=== PATIENT | female | born 2000 | race Caucasian/White ===

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

== ENCOUNTER 2019-01-23 19:55 | Outpatient (CLI) | payer MEDICAID | END 2019-01-23 19:56 | LOC: LAB.R 19:55 | PROVIDERS: ATTEND Registered Nurse | DX: J02.9 Acute pharyngitis, unspecified (principal) | CPT/HCPCS: 87070; 87430 ==

== ENCOUNTER 2019-03-12 08:41 | Emergency (ER) | payer MEDICAID ==
[2019-03-12 08:51] VITALS: BP 139/77
[2019-03-12] MEDS ORDERED: IBUPROFEN 800 MG TABLET PO STA (09:01)
--- NOTE | 2019-03-12 09:04 | ED Physician Documentation ---
PD HPI LOWER EXT INJURY - Stated complaint Stated Complaint: ANKLE PX - Chief complaint Chief Complaint: Ext Problem - History obtained from History obtained from: Patient - History of Present Illness PD HPI LOW EXT INJURY LOCATION: Left, Ankle Type of injury: Twist Where injury occurred: Other (horse stable) Timing - onset: Yesterday Worsened by: Moving, Palpating, Other (weight bearing) Associated symptoms: Swelling. No: Weakness, Numbness Similar symptoms before: Has not had sx before - Additional information Additional information: The patient is a 18-year-old female who fell off her horse yesterday, twisting her left ankle. She presents now because of left ankle pain, exacerbated with weightbearing. She denies any other injuries. Review of Systems Constitutional: denies: Fever Nose: denies: Congestion Respiratory: denies: Dyspnea GI: denies: Abdominal Pain Skin: denies: Abrasion (s) Musculoskeletal: reports: Joint pain (left ankle). denies: Back pain Neurologic: denies: Focal weakness, Numbness, Headache, Head injury PD PAST MEDICAL HISTORY - Past Medical History Past Medical History: Yes Endocrine/Autoimmune: None Other Past Medical History: autoimmune disease - Past Surgical History Past Surgical History: No - Present Medications Home Medications: Ambulatory Orders Medication Instructions Recorded Confirmed Venlafaxine [Effexor] 37.5 mg DAILY 03/12/19 03/12/19 - Allergies Allergies/Adverse Reactions: Allergies Allergy/AdvReac Type Severity Reaction Status Date / Time Penicillins Allergy Rash Verified 03/12/19 08:51 - Social History Does the pt smoke?: No Smoking Status: Never smoker Does the pt drink ETOH?: No Does the pt have substance abuse?: No - Immunizations Immunizations are current?: Yes - POLST Patient has POLST: No PD ED PE NORMAL - Vitals Vital signs reviewed: Yes (Borderline systolic hypertension initially.) - General General: Alert and oriented X 3, Well developed/nourished - HEENT HEENT: Atraumatic - Respiratory Respiratory: No respiratory distress - Derm Derm: No rash - Extremities Extremities: Other (There is soft tissue swelling at the lateral aspect of the left ankle, with tenderness to palpation over the posterior aspect of the lateral malleolus. There is no tenderness to palpation over the medial malleolus, the fifth metatarsal base, or the proximal fibula. Distal neurovascular is intact.) - Neuro Neuro: Alert and oriented X 3, No motor deficit, No sensory deficit Results - Vitals Vitals: Vital Signs - 24 hr 03/12/19 08:44 Temperature 36.6 C Heart Rate 90 Respiratory 18 Rate Blood Pressure 139/77 H O2 Saturation 98 Oxygen O2 Source Room air - Rads (name of study) left ankle Radiology: Prelim report reviewed, EMP read contemporaneously, See rad report (Soft tissue swelling without fracture detected.) PD MEDICAL DECISION MAKING - ED course Complexity details: reviewed results, re-evaluated patient, considered differential, d/w patient ED course: The patient's presentation is most consistent with acute ankle sprain. There is no evidence of fracture or dislocation seen on x-ray examination. Treatment in the emergency department included administration of ankle air splint. Crutches were dispensed. Ibuprofen, 800 mg, was administered orally. I discussed with her the expected course of injury, symptomatic treatment and outpatient follow- up, as well as potentially worrisome signs or symptoms that should prompt reevaluation in the emergency department. Departure - Departure Disposition: 01 Home, Self Care Clinical Impression: Left ankle sprain Qualifiers: Encounter type: initial encounter Involved ligament of ankle: posterior talofibular ligament Qualified Code(s): S93.492A - Sprain of other ligament of left ankle, initial encounter Condition: Stable Instructions: ED Sprain Ankle W X Ray Comments: Keep your injured leg elevated as much of the time as possible. Apply ice pack to the injured area intermittently for the next 3 days. You can use ibuprofen, up to 800 mg 3 times daily for its anti-inflammatory effect. Let pain be your guide to activity level. Follow up with your primary physician within 2 weeks if not starting to improve. Call to schedule a follow-up appointment. Return to the emergency department if you develop markedly increasing pain, or otherwise worsening symptoms. Forms: Activity restrictions
--- NOTE | 2019-03-12 09:32 | XRAY Report ---
Reason: left ankle injury Procedure Date: 03/12/2019 Accession Number: [id number] / [id number] Procedure: XR - Ankle 3 View LT CPT Code: FULL RESULT: EXAM: LEFT ANKLE RADIOGRAPHY EXAM DATE: 03/12/2019 09:17 AM. CLINICAL HISTORY: Left ankle injury. COMPARISON: None. TECHNIQUE: 3 views. FINDINGS: Bones: Normal. No fractures or bone lesions. Joints: Normal. No effusion. No subluxations. The ankle mortise is normally aligned. Soft Tissues: Mild soft tissue swelling. IMPRESSION: Soft tissue swelling without fracture detected. [facility]
== END 2019-03-12 09:54 | disposition home or self-care (01) ==
LOC: ED 08:41
DX: S93.492A Sprain of other ligament of left ankle, initial encounter (principal); V80.010A Animal-rider injured by fall from or being thrown from horse in noncollision accident, initial encounter; X50.1XXA Overexertion from prolonged static or awkward postures, initial encounter; Y92.89 Other specified places as the place of occurrence of the external cause
CPT/HCPCS: 73610; 99283; A9270

== ENCOUNTER 2019-03-30 20:04 | Emergency (ER) | payer MEDICAID ==
[2019-03-30 20:12] VITALS: BP 132/76
[2019-03-30] MEDS ORDERED: SUMAtriptan 6 MG/0.5 ML VIAL SUBQ STA (20:20)
--- NOTE | 2019-03-30 20:23 | ED Physician Documentation ---
PD HPI HEADACHE - Stated complaint Stated Complaint: MIGRAINE KILPATRICK - Chief complaint Chief Complaint: Heent - History obtained from History obtained from: Patient - History of Present Illness Timing - onset: Today (18-year-old with recurrent migraines since the age of 14. Gradual onset retro-orbital headache today associated with 2 episodes of vomiting and light sensitivity but no neck stiffness or fevers similar to prior migraines. She tried Excedrin without relief.) Review of Systems Constitutional: reports: Reviewed and negative Throat: reports: Reviewed and negative Cardiac: reports: Reviewed and negative Respiratory: reports: Dyspnea PD PAST MEDICAL HISTORY - Past Medical History Endocrine/Autoimmune: None - Past Surgical History Past Surgical History: No - Present Medications Home Medications: Ambulatory Orders Medication Instructions Recorded Confirmed Venlafaxine [Effexor] 37.5 mg DAILY 03/12/19 03/12/19 Ondansetron Odt [Zofran] 4 mg TL Q6H PRN #10 tablet 03/30/19 SUMAtriptan [Imitrex] 25 mg PO BID PRN #10 tablet 03/30/19 - Allergies Allergies/Adverse Reactions: Allergies Allergy/AdvReac Type Severity Reaction Status Date / Time Penicillins Allergy Rash Verified 03/30/19 20:11 - Social History Does the pt smoke?: No Smoking Status: Never smoker Does the pt drink ETOH?: No Does the pt have substance abuse?: No - Immunizations Immunizations are current?: Yes - POLST Patient has POLST: No PD ED PE NORMAL - Vitals Vital signs reviewed: Yes - General General: Alert and oriented X 3, No acute distress - HEENT HEENT: PERRL, EOMI - Neck Neck: Supple, no meningeal sign, No bony TTP - Neuro Neuro: Alert and oriented X 3, associate 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 As such I doubt subarachnoid hemorrhage. There are no infectious symptoms such as fever or stiff neck to make me suspect meningitis. No carbon monoxide exposure by history. She is feeling much better after Imitrex but still having persistent nausea and was given Zofran. Requested discharge with a work note. Departure - Departure Disposition: 01 Home, Self Care Clinical Impression: Migraine Qualifiers: Migraine type: without aura Status migrainosus presence: with status migrainosus Intractability: not intractable Qualified Code(s): G43.001 - Migraine without aura, not intractable, with status migrainosus Condition: Good Record reviewed to determine appropriate education?: Yes Instructions: ED Headache Migraine Prescriptions: Ondansetron Odt [Zofran] 4 mg TL Q6H PRN #10 tablet PRN Reason: Nausea / Vomiting SUMAtriptan [Imitrex] 25 mg PO BID PRN #10 tablet PRN Reason: Headache Comments: Call your doctor to arrange a follow-up appointment, make the next available appointment. In the interim, return anytime if worse or if new symptoms develop. Your blood pressure was elevated today on check into the emergency department. This does not mean that you have hypertension, it is a common phenomenon to come to the emergency department and have elevated blood pressure. I recommend that you see your primary care physician within the week to have it rechecked when you are feeling better.
[2019-03-30] MEDS ORDERED: ONDANSETRON ODT 4 MG TABLET TL STA (21:11)
== END 2019-03-30 21:24 | disposition home or self-care (01) ==
LOC: ED 20:04
DX: G43.001 Migraine without aura, not intractable, with status migrainosus (principal); R03.0 Elevated blood-pressure reading, without diagnosis of hypertension
CPT/HCPCS: 96372; 99283; Q0162

== ENCOUNTER 2019-05-22 12:14 | Outpatient (CLI) | payer MEDICAID ==
[2019-05-22 13:10] LABS: HB2 TOTAL 13.6 g/dL; HEMOGLOBIN A1C 0.46 g/dL; HEMOGLOBIN A1C % 5.2 % (4.6-6.2)
[2019-05-22 13:20] LABS: ALBUMIN 4.1 g/dL (3.2-5.5); ALBUMIN/GLOBULIN RATIO 1.1 (1.0-2.2); BILIRUBIN,TOTAL 0.6 mg/dL (0.2-1.0); CALCIUM 9.1 mg/dL (8.5-10.3); CREATININE 0.7 mg/dL (0.4-1.0); TOTAL PROTEIN 7.8 g/dL (6.7-8.2)
[2019-05-22 13:44] LABS: THYROID STIMULATING HORMONE 1.97 uIU/mL (0.34-5.60)
[2019-05-22 13:46] LABS: FREE T4 (FREE THYROXINE) 0.83 ng/dL (0.58-1.64)
[2019-05-22 13:50] LABS: PROLACTIN 4.06 ng/mL
== END 2019-05-22 12:15 | disposition home or self-care (01) ==
LOC: LAB 12:14
PROVIDERS: ATTEND Obstetrics & Gynecology
DX: N92.6 Irregular menstruation, unspecified (principal); Z31.69 Encounter for other general counseling and advice on procreation; E28.2 Polycystic ovarian syndrome; N92.0 Excessive and frequent menstruation with regular cycle
CPT/HCPCS: 36415; 80053; 83036; 84146; 84439; 84443; 86762; 86787

== ENCOUNTER 2019-11-07 08:04 | Emergency (ER) | payer MEDICAID ==
[2019-11-07 08:12] VITALS: BP 133/79
--- NOTE | 2019-11-07 08:47 | ED Physician Documentation ---
PD HPI URI - Stated complaint Stated Complaint: COUGH/FEVER - Chief complaint Chief Complaint: Heent - History obtained from History obtained from: Patient, Family - History of Present Illness Timing - onset: How many days ago (3) Timing duration: Days (3) Timing details: Gradual onset, Still present Associated symptoms: Fever, Nasal congestion, Rhinorrhea, Sinus pain, Sore throat, Dry cough, Dyspnea Contributing factors: Sick contact Improves by: Rest, Medication Worsened by: Activity Similar symptoms before: Diagnosis (OM URI) Recently seen: Not recently seen - Additional information Additional information: Previously well 19-year-old female has developed a cough and congestion 3 days ago she has sinus pressure in the frontal sinus area a cough nonproductive and a sore throat. She states sore throat was bad enough this morning early that she was feeling she was having a difficult time getting a full deep breath. She has not used an inhaler previously she has had similar symptoms previously with otitis. Review of Systems Constitutional: reports: Fever Eyes: denies: Decreased vision Ears: denies: Ear pain Nose: reports: Rhinorrhea / runny nose, Congestion, Sinus pressure / pain Throat: reports: Sore throat Cardiac: denies: Chest pain / pressure, Palpitations Respiratory: reports: Dyspnea, Cough. 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 HEENT: None Psych: None Musculoskeletal: None Derm: None - Past Surgical History Past Surgical History: No - Present Medications Home Medications: Ambulatory Orders Medication Instructions Recorded Confirmed Venlafaxine [Effexor] 37.5 mg DAILY 03/12/19 03/12/19 Ondansetron Odt [Zofran] 4 mg TL Q6H PRN #10 tablet 03/30/19 SUMAtriptan [Imitrex] 25 mg PO BID PRN #10 tablet 03/30/19 Oseltamivir [Tamiflu] 75 mg PO BID #10 capsule 11/07/19 - Allergies Allergies/Adverse Reactions: Allergies Allergy/AdvReac Type Severity Reaction Status Date / Time Penicillins Allergy Rash Verified 11/07/19 08:12 - Social History Does the pt smoke?: No Smoking Status: Never smoker Does the pt drink ETOH?: No Does the pt have substance abuse?: No - Immunizations Immunizations are current?: Yes - POLST Patient has POLST: No PD ED PE NORMAL - Vitals Vital signs reviewed: Yes (Febrile tachycardic and hypertensive) - General General: Alert and oriented X 3, No acute distress, Well developed/nourished - HEENT HEENT: Atraumatic, PERRL, EOMI, Ears normal, Moist mucous membranes, Pharynx benign, Dentition benign, Other (Frontal sinus point tenderness to palpation.) - Neck Neck: Supple, no meningeal sign, No bony TTP - Cardiac Cardiac: RRR, No murmur - Respiratory Respiratory: No respiratory distress, Clear bilaterally - Abdomen Abdomen: Normal bowel sounds, Soft, Non tender, Non distended, No organomegaly - Back Back: No CVA TTP, No spinal TTP - Derm Derm: Normal color, Warm and dry, No rash - Extremities Extremities: No deformity, No edema - Neuro Neuro: Alert and oriented X 3, rock cutter 2-12 intact, No motor deficit, No sensory deficit, Normal speech Eye Opening: Spontaneous Motor: Obeys Commands Verbal: Oriented GCS Score: 15 - Psych Psych: Normal mood, Normal affect Results - Vitals Vitals: Vital Signs - 24 hr 11/07/19 08:10 Temperature 37.9 C H Heart Rate 133 H Respiratory 14 Rate Blood Pressure 133/79 H O2 Saturation 97 Oxygen O2 Source Room air - Labs Labs: Laboratory Tests 11/07/19 11/07/19 08:15 08:15 Influenza A (Rapid) Negative Influenza B (Rapid) POSITIVE H Group A Strep Rapid Negative PD MEDICAL DECISION MAKING - ED course Complexity details: reviewed results, re-evaluated patient, considered differential, d/w patient, d/w family ED course: 19 y/o female with influenza B. She is administered decadron and we will place her on a course of tamiflu. Departure - Departure Disposition: 01 Home, Self Care Clinical Impression: Influenza B Condition: Stable Instructions: ED Flu Follow-Up: Shanon Nj ARNP [Physician No Access] - Prescriptions: Oseltamivir [Tamiflu] 75 mg PO BID #10 capsule Forms: Activity restrictions
[2019-11-07] MEDS ORDERED: DEXAMETHASONE 10 MG/ML VIAL PO STA (08:52)
[2019-11-07] MEDS ORDERED: CHERRY SYRUP 10 ML UDC PO ONE (08:52)
== END 2019-11-07 09:02 | disposition home or self-care (01) ==
LOC: ED 08:04
DX: J10.1 Influenza due to other identified influenza virus with other respiratory manifestations (principal)
CPT/HCPCS: 87070; 87275; 87276; 87430; 99283; 99284; A9270

== ENCOUNTER 2020-04-05 21:53 | Emergency (ER) | payer MEDICAID ==
[2020-04-05 22:14] VITALS: BP 132/82
--- NOTE | 2020-04-05 22:57 | ED Physician Documentation ---
History of Present Illness - Stated complaint Stated Complaint: VEINS RED/RAISED ON LEGS - Chief complaint Chief Complaint: Ext Problem - History obtained from History obtained from: Patient (the patient is a 19 y/o f with a cc of rash and raised veins to her bilateral thighs. she denies any other complaints, she reports she was out in the sun today and noticed some redness to her bilaeral thighs and she did some research on the internet and noticed that this could be a sign of covid 19. she also reports that over 2 years ago she was admitted to [facility] off and on for over 2 months for some sort of inflammatory or autoimmune disease and was treated with prednisone for over 2 months and that she has been asymptomatic since that time, she described her symptoms at that time to include diffuse inflammation of her joints, low grade fevers and describes signs consistent with erythema nodosum. she denies any fevers, headaches, sore throat or neck pain or sob or chest pain.) Review of Systems Constitutional: reports: Reviewed and negative Eyes: reports: Reviewed and negative Ears: reports: Reviewed and negative Nose: reports: Reviewed and negative Throat: reports: Reviewed and negative Cardiac: reports: Reviewed and negative Respiratory: reports: Reviewed and negative GI: reports: Reviewed and negative : reports: Reviewed and negative Skin: reports: Rash Musculoskeletal: reports: Reviewed and negative Neurologic: reports: Reviewed and negative Psychiatric: reports: Reviewed and negative Endocrine: reports: Reviewed and negative Immunocompromised: reports: Reviewed and negative PD PAST MEDICAL HISTORY - Past Medical History Cardiovascular: None Respiratory: None Neuro: Headaches, Migraines Endocrine/Autoimmune: None GI: None 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 HEENT: None Psych: None Musculoskeletal: None Derm: None - Past Surgical History Past Surgical History: No - Present Medications Home Medications: Ambulatory Orders Medication Instructions Recorded Confirmed Pnv No.95/Ferrous Fum/Folic AC 1 tab DAILY 04/05/20 04/05/20 [ Cap[place]] - Allergies Allergies/Adverse Reactions: Allergies Allergy/AdvReac Type Severity Reaction Status Date / Time Penicillins Allergy Rash Verified 11/07/19 08:12 - Social History Does the pt smoke?: No Smoking Status: Never smoker Does the pt drink ETOH?: No Does the pt have substance abuse?: No - Immunizations Immunizations are current?: Yes - POLST Patient has POLST: No PD ED PE NORMAL - Vitals Vital signs reviewed: Yes - General General: Alert and oriented X 3, No acute distress, Well developed/nourished - HEENT HEENT: Atraumatic, PERRL - Neck Neck: Supple, no meningeal sign, No adenopathy, No JVD - Cardiac Cardiac: RRR, No murmur, Strong equal pulses - Respiratory Respiratory: No respiratory distress, Clear bilaterally - Abdomen Abdomen: Normal bowel sounds, Soft, Non tender, Non distended, No organomegaly - Back Back: No CVA TTP, No spinal TTP - Derm Derm: Normal color, Warm and dry, Other (on bilateral thighs there are some mild areas of diffuse erythema on the thighs that is without fluctuation or induration, there is no inguinal LAD, not warm, There is no petechiae or purpura.Compartments are soft.) - Extremities Extremities: No deformity - Neuro Neuro: Alert and oriented X 3 - Psych Psych: Normal mood, Normal affect Results - Vitals Vitals: Vital Signs - 24 hr 04/05/20 22:12 Temperature 37.1 C Heart Rate 90 Respiratory 18 Rate Blood Pressure 132/82 H O2 Saturation 98 Oxygen O2 Source Room air PD MEDICAL DECISION MAKING - ED course Complexity details: considered differential (Given the history and physical exam this could be consistent with a contact dermatitis or heat rash also on the differential this could possibly be a manifestation of COVID-19 or more likely would be a manifestation of previous underlying undiagnosed inflammatory disorder or autoimmune disease. the patient reports that she was worked up for sarcoidosis as well as lupus and multiple other causes of her symptoms to include crohns or UC, she reports she had a negative EGD as well as colonoscopy and that her blood work was unremarkable other than elevated inflammatory markers. she denies any other complaints today, specifically denies any fevers, cough, [place], cp/sob, neck pain or lower extremity swelling, denies any hx of pe/dvt.) Departure - Departure Disposition: 01 Home, Self Care Clinical Impression: Rash and nonspecific skin eruption Condition: Stable Instructions: ED Erythema Follow-Up: your, doctor [Other] Oliver Mejia MD [Provider Admit Priv/Credential] - Tomorrow Comments: ice as needed, take benadryl as needed. follow up with a primary care provider tomorrow. return to the emergency department with any concerns. hydrate well.
== END 2020-04-05 23:13 | disposition home or self-care (01) ==
LOC: ED 21:53
DX: R21 Rash and other nonspecific skin eruption (principal)
CPT/HCPCS: 99282; 99284

== ENCOUNTER 2020-04-13 12:02 | Outpatient (CLI) | payer MEDICAID | END 2020-04-13 23:59 | disposition home or self-care (01) | LOC: LAB.WCP 12:02 | PROVIDERS: ATTEND Obstetrics & Gynecology | DX: N97.0 Female infertility associated with anovulation (principal); N92.6 Irregular menstruation, unspecified | CPT/HCPCS: 36415; 84144 ==

== ENCOUNTER 2020-06-20 13:15 | Outpatient (CLI) | payer MEDICAID ==
[2020-06-21 10:18] LABS: BILIRUBIN,URINE NEGATIVE (NEGATIVE); CLARITY,URINE CLEAR (CLEAR); GLUCOSE, URINE (UA) NEGATIVE (NEGATIVE); KETONES,URINE (UA) NEGATIVE (NEGATIVE); LEUKOCYTE ESTERASE, URINE NEGATIVE (NEGATIVE); NITRITE,URINE NEGATIVE (NEGATIVE); OCCULT BLOOD,URINE SMALL (NEGATIVE); PROTEIN,URINE NEGATIVE (NEGATIVE); UROBILINOGEN,URINE 0.2 (NORMAL) E.U./dL (NORMAL)
[2020-06-21 10:56] LABS: BACTERIA,URINE Rare /HPF (None Seen); RBC,URINE 0-5 /HPF (0-5); SQUAMOUS EPITHELIAL CELL,UR FEW Squamous (<= Few)
[2020-06-21 18:00] LABS: CANDIDA GROUP DNA NEGATIVE (NEGATIVE); CANDIDA KRUSEI DNA NEGATIVE (NEGATIVE); TRICHOMONAS VAGINALIS DNA NEGATIVE (NEGATIVE)
== END 2020-06-20 23:59 | disposition home or self-care (01) ==
LOC: LAB.R 13:15
PROVIDERS: ATTEND Obstetrics & Gynecology
DX: R30.0 Dysuria (principal)
CPT/HCPCS: 81001; 87086; 87661; 87801